=== PATIENT | male | born 1990 | race Hispanic/Latino ===

== ENCOUNTER 2017-12-10 21:47 | Emergency (ER) | payer BC ==
[2017-12-10 22:21] VITALS: BP 131/81; PULSE 56; RESP 18; TEMP 98; O2SAT 100
[2017-12-10] MEDS ORDERED: Tdap Vaccine 0.5 ml Vial (10-64 yrs) IM ONE ×2 (22:41→23:09)
[2017-12-10] MEDS ORDERED: Lidocaine 2% Inj (20ml) INFIL ONE (22:41)
--- NOTE | 2017-12-10 22:43 | ED PDOC ---
Lower Extremity Pain/Injury Time Seen by Provider: 12/10/17 22:41 Chief Complaint (Nursing): Lower Extremity Problem/Injury Chief Complaint (Provider): RIGHT TOE INJURY History Per: Patient (27 Y/O MALE HERE WITH RIGHT FOOT INJURY AFTER HE STUBBED TOE AGAINST DOOR. TETANUS WAS LAST GIVEN 5 YEARS AGO. NOTES SMALL ABRASION SUPERFICIALLY. NOTES DEFORMITY OF FOURTH TOE.) Past Medical History Reviewed: Historical Data, Nursing Documentation, Vital Signs Vital Signs: Last Vital Signs Temp 98 F 12/10/17 22:19 Pulse 56 L 12/10/17 22:19 Resp 18 12/10/17 22:19 BP 131/81 12/10/17 22:19 Pulse Ox 100 12/10/17 22:19 - Family History Family History: States: No Known Family Hx - Allergies Allergies/Adverse Reactions: Allergies Allergy/AdvReac Type Severity Reaction Status Date / Time No Known Allergies Allergy Verified 12/10/17 22:19 Review of Systems ROS Statement: Except As Marked, All Systems Reviewed And Found Negative Physical Exam - Reviewed Nursing Documentation Reviewed: Yes Vital Signs Reviewed: Yes - Physical Exam Appears: Positive for: Well, Non-toxic, No Acute Distress Head Exam: Positive for: ATRAUMATIC, NORMAL INSPECTION, NORMOCEPHALIC Skin: Positive for: Normal Color, Warm, DRY Eye Exam: Positive for: EOMI, Normal appearance, PERRL ENT: Positive for: Normal ENT Inspection Neck: Positive for: Normal, Painless ROM Cardiovascular/Chest: Positive for: Regular Rate, Rhythm Respiratory: Positive for: CNT, Normal Breath Sounds Gastrointestinal/Abdominal: Positive for: Normal Exam, Soft Back: Positive for: Normal Inspection Extremity: Positive for: Normal ROM, Swelling (SWELLING AND ANGULATION OF DISTAL PHALANX FOURTH TOE RIGHT FOOT. SMALL ABRASION NOTED MEDIAL ASPECT OF FOURTH TOE.) Neurologic/Psych: Positive for: Alert, Oriented - ECG O2 Sat by Pulse Oximetry: 100 - Progress ED Course And Treament: TDAP 0.5 ML IM X 1 DOSE FOOT XRY: FX NOTED OF PROXIMAL PHALANX FOURTH DIGIT DISPLACED. D/W PODIATRY RESIDENT. seen by her in ED with toe reduced and gerald taped with hard shoe given. f/u with [facility]. Disposition - Clinical Impression Clinical Impression: Toe fracture - Patient ED Disposition Is Patient to be Admitted: Transfer of Care - Disposition Referrals: Ran Anderson MD [Staff Provider] - Disposition: Transfer of Care Disposition Time: 00:22 Condition: FAIR Instructions: Toe Fracture (DC)
[2017-12-10] MEDS ORDERED: Lidocaine PF 2% (5 ml) Inj (For Cardiac Arrhy) ONE (22:46)
--- NOTE | 2017-12-11 07:09 | CP.PCM.CON ---
History of Present Illness - History of Present Illness History of Present Illness: 27 yo male patient, with no significant past medical history, seen and evaluated in the ED for a right 4th proximal phalanx fracture. Patient states that he stubbed his toe on a door a few hours before presenting to the ED. He notes that he is in minimal pain to the 4th toe, however it looks out of place. He notes a small abrasion to the dorsal aspect of 4th toe. Denies N/V/F/SOB/CP. PMHx: Denies PSHx: Denies Social: Denies tobacco use All: NKDA Review of Systems - Review of Systems Review of Systems: As per HPI Past Patient History - Past Social History Smoking Status: Never Smoked - PSYCHIATRIC Hx Substance Use: No - ANESTHESIA Hx Anesthesia: No Meds Allergies/Adverse Reactions: Allergies Allergy/AdvReac Type Severity Reaction Status Date / Time No Known Allergies Allergy Verified 12/10/17 22:19 Physical Exam - Constitutional Appears: Well, Non-toxic, No Acute Distress - Head Exam Head Exam: ATRAUMATIC, NORMOCEPHALIC - Extremities Exam Additional comments: Vascular: DP/PT 2/4 bilaterally, CFT <3 seconds to all 10 digits, TG WNL, minimal edema noted circumfrentially to the right 4th digit Ortho: Mild tenderness upon palpation of right 4th digit, slight lateral dislocation of right 4th DIPJ Neuro: Gross and protective sensation intact Derm: Small abrasion noted to the dorsal medial aspect of the right 4th digit, no purulence, no drainage, no tunneling, no clinical signs of infection. Minor ecchymosis to the dorsal aspect of the right 4th digit. - Neurological Exam Neurological exam: Alert, Oriented x3 - Psychiatric Exam Psychiatric exam: Normal Affect, Normal Mood Results - Vital Signs Recent Vital Signs: Last Vital Signs Temp 98 F 12/10/17 22:19 Pulse 56 L 12/10/17 22:19 Resp 18 12/10/17 22:19 BP 131/81 12/10/17 22:19 Pulse Ox 100 12/11/17 00:23 Assessment & Plan - Assessment and Plan (Free Text) Assessment: 27 yo male patient, with no significant past medical history, seen and evaluated in the ED for a right 4th proximal phalanx fracture. Plan: Patient seen and evaluated with all questions and concerns addressed Patient plan discussed in detail with Dr. Anderson 5 cc of 1% lidocaine administered in a digital local block fashion, followed by a closed reduction of the 4th digit 4th digit gerald splinted to 3rd digit; patient educated on the proper technique to gerald tape and told to apply it daily Tetanus status updated Avoid any major physical activities; avoid exercise Surgical shoe dispensed and advised to wear until he follows up in office F/U in Dr. Anderson's office within 1 week - Date & Time Date: 12/10/17 Time: 23:50
--- NOTE | 2017-12-11 09:16 | RAD ---
Date of service: 12/10/2017 PROCEDURE: Right Foot Radiographs. HISTORY: FOURTH TOE DISLOCATION COMPARISON: None. FINDINGS: BONES: Fourth proximal phalanx fracture. JOINTS: Normal. SOFT TISSUES: Normal. OTHER FINDINGS: None. IMPRESSION: Fourth proximal phalanx fracture.
== END 2017-12-11 00:22 | disposition home or self-care (01) ==
LOC: H.ER 22:19
DX: S93.101A Unspecified subluxation of right toe(s), initial encounter (principal); W22.8XXA Striking against or struck by other objects, initial encounter; Y92.89 Other specified places as the place of occurrence of the external cause